=== PATIENT | male | born 1955 | race Caucasian/White ===

== ENCOUNTER → 2019-10-14 | Outpatient (CLI) | payer OTHER | LOC: COL.RAD 09:20 | DX: Z01.812 Encounter for preprocedural laboratory examination (principal); C61 Malignant neoplasm of prostate; M51.36 Other intervertebral disc degeneration, lumbar region | CPT/HCPCS: A9503; Q9967 ==

== ENCOUNTER 2019-12-09 15:10 | Inpatient (IN) | payer OTHER ==
[~2019-12-09] VITALS: Ht 182.9 cm; Wt 92.5 kg
[2019-12-22] VITALS (14 sets, daily range): BP systolic 84–123; BP diastolic 56–82; PULSE 75–104; TEMP 97.5–98
[2019-12-22] MEDS ORDERED: ZESTRIL40 MG PO (07:50)
[2019-12-22] MEDS ORDERED: HCTZ 25MG TAB25 MG PO (07:51)
[2019-12-22] MEDS ORDERED: PHARMASSURE ZIN50 MG PO (07:52)
[2019-12-22] MEDS ORDERED: VITAMIN B COMPL1 SGL PO (07:53)
[2019-12-22] MEDS ORDERED: NATURAL VITAM1000 MG PO (07:54)
[2019-12-22] MEDS ORDERED: VITAMIN D 1001000 IU PO (07:55)
[2019-12-22] MEDS ORDERED: DUO-KAPS1 CAP PO (07:56)
[2019-12-22] MEDS ORDERED: NIACIN 100100 MG/TAB PO (07:56)
[2019-12-22] MEDS ORDERED: OMEGA-3 1000 MG1 CAP PO (07:56)
[2019-12-22] MEDS ORDERED: IRON18 MG1 PO (07:56)
[2019-12-22] MEDS ORDERED: VITAMIN A10k PO (07:57)
[2019-12-22] MEDS ORDERED: MAGNESIUM ELEME30 MG PO (07:57)
[2019-12-22] MEDS ORDERED: CINNAMON500 MG PO (07:58)
--- NOTE | 2019-12-22 12:00 | NUR ---
PATIENT IS ORIENTED BUT VERY DROWSY POST OP. VSS CURRENTLY STABLE. PACU REPORTED HYPOTENTION DURING CASE. IV FLUIDS INFUSING VIA PUMP INTO LEFT HAND. PORTER TO DD WITH SMALL AMOUNTS OF CLEAR YELLOW URINE NOTED IN TUBE. MIDLINE DRESSING IS CD&I WITH GAUZE & METAPOR TAPE. ABDOMINAL GISELLA DRIAN TO LIS WITH SCANT AMOUNTS OF BLOODY DRAINAGE NOTED. HEAD TO TOE WNL. FAMILY AT BEDSIDE.
--- NOTE | 2019-12-22 12:40 | NUR ---
PATIENT DISCHARGING HOME VIA AMBULATORY WITH HIS BROTHER. GAVE DISCHARGE INSTRUCTIONS AND FOLLOW UP APT. ANSWERED ALL QUESTIONS/CONCERNS. IV DC'D. PATIENT DISCHARGED.
--- NOTE | 2019-12-22 12:45 | NUR ---
PATIENT HYPOTENSIVE. INCREASED IV FLUIDS. HOB LOWERED. PATIENT ORIENTED AND TALKING. EPIDURAL TURNED OFF. PHYSICIAN NOTIFIED.
--- NOTE | 2019-12-22 12:50 | NUR ---
ANESTHESIA NOTIFIED ABOUT EPIDURAL OFF. IV FLUID BOLUS OF 500 INFUSING. PATIENT STABLE. ASYMPTOMATIC AT THIS TIME.
--- NOTE | 2019-12-22 14:00 | NUR ---
PATIENT B/P NOW IN THE 90'S SYSTOLIC AFTER BOLUS AND EPIDURAL TURNED OFF. PATIENT STILL DENIES PAIN. EPIDURAL STILL OFF.
[2019-12-22 14:15] LABS: HEMATOCRIT 38.6 % (42.0-52.0)
--- NOTE | 2019-12-22 16:30 | NUR ---
PATIENT REPORTS HIS IS STARTING TO HAVE SOME DISCOMFORT. ANESTHESIA AT BEDSIDE TO TURN EPIDURAL BACK ON AT A LOWER DOSE.
--- NOTE | 2019-12-22 17:25 | NUR ---
AT BEDSIDE. PATIENT TOLERATING EPIDURAL AT 3CC/HR. WILL MONITOR.
--- NOTE | 2019-12-22 20:48 | NUR ---
Pt states he feels well, no pain, not symptommatic. BP still soft/ 90s over 60s. Continuing to monitor. Pt alert and oriented. Other vss. Pt has 1 midline incision covered with gauze and metapor tape, cd&i. Pt has sukhwinder drain to left side of abodmen which is on int suction, very minimal bloody drainage. Has spinal with pain meds running at 3cc/hr. Has bell catheter to dependent drainage. 18g in L hand with fluids running. Pt denies needs at this time. Call light within reach, will continue to monitor patient and pressures closely
--- NOTE | 2019-12-22 21:28 | NUR ---
Pt bp dropped to 86/51, he is asymptommatic. Bolusing fluids now and shut spinal off per Dr. Altamirano. Will switch to oral pain medicine. [place] 5-325 q6. Pt is ok with this. Will continue to monitor pain and pressures
--- NOTE | 2019-12-22 22:27 | NUR ---
pt bp is rising, still asymmptomatic. bolus given and fluids running at 150. pt states he feels good, denies chest pain, sob. alert and oriented x4. will continue to monitor
--- NOTE | 2019-12-22 23:50 | NUR ---
Pt bp dropped to 88/56, pt is sleeping. Does not appear to be in pain. Fluids running at 150/hr. Will continue to monitor pressures
[2019-12-23] VITALS (7 sets, daily range): BP systolic 89–139; BP diastolic 58–87; PULSE 75–94; TEMP 97.6–98.6
--- NOTE | 2019-12-23 03:38 | NUR ---
Pt sleeping peacefully in bed. Pressures are coming up. No signs of distress. Call light within reach, will continue to monitor
[2019-12-23 07:35] LABS: CALCIUM 7.7 mg/dL (8.4-10.2); CREATININE, serum 0.89 (0.66-1.25); POTASSIUM 3.9 mmol/L (3.4-5.0)
--- NOTE | 2019-12-23 09:30 | NUR ---
AT BEDSIDE. SEE ORDERS.
--- NOTE | 2019-12-23 12:00 | NUR ---
CUT & BAG GISELLA PER ORDERS. RE-ENFORCED ABDOMINAL DRESSING, APPLIED 4X4'S & MEDIPOR. PATIENT TOLERATING DIET WELL. IV TO INT. ASSISTED PATIENT TO BATHROOM TO TRY AND HAVE A BM. PATIENT INSTRUCTED TO NOT STRAIN.
--- NOTE | 2019-12-23 13:48 | NUR ---
Submarine Diver met with patient and patient's Carlos Manuel (ph#[phone]) to discuss discharge planning. Patient lives with his outside of [place], [place]. Patient sees BRAULIO Ryan at the [facility] office. Patient obtains needed prescriptions from [facility] in [place] with no difficulties. Patient does not use any DME and is independent with [facility]. Patient does not have Advance Directives and is confident his and children will make decisions in his best interest if needed. Patient plans to return home upon discharge with no additional concerns.
--- NOTE | 2019-12-23 18:25 | NUR ---
PATIENT AMBULATING IN HALLS GAIT. TOLERATING ACTIVITY WELL.
--- NOTE | 2019-12-23 21:00 | NUR ---
Report received. 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 Assessment complete. A&Ox3. VS stable. Denies pain/nausea/shortness of breath. Dressing to midline abdomen totally saturated with serosanguineous drainage. Changed at this time using 4x4s/abd/cloth tape. Ирина drain to DD-bag leaking as well-changed using ileostomy pouch- as previous U bag continued to leak. Tolerating PO. +Flatus. INT to left hand flushes without difficulty. Up to ambulate in hallways. States he feels much better than he thought he would. Denies questions/concerns. Encouraged to call for needs. Call light in reach. Will monitor.
[2019-12-24] VITALS: BP 130/70; PULSE 88; TEMP 98
[2019-12-24 04:58] VITALS: BP 119/74; PULSE 92; TEMP 97.6
[2019-12-24 08:02] VITALS: BP 142/90; PULSE 96; TEMP 97.5
[2019-12-24 11:53] VITALS: BP 132/85; PULSE 94; TEMP 97.8
--- NOTE | 2019-12-24 14:45 | NUR ---
Minimal complaints of incisional pain today. Ирина culp. Leg bag teaching done. Verbalized understanding. Ambulated in halls independently. Discharge instructions given. Dismissed to home per w/c with spouse.
== END 2019-12-24 14:45 | disposition home or self-care (01) | DRG 708 ==
LOC: INPTSU 12-22 06:36 → SURG 12-22 06:36
PROVIDERS: ADMIT Urology
PROC: 0VT04ZZ Resection of Prostate, Percutaneous Endoscopic Approach (ICD-10-PCS; principal; 2019-12-22 08:30)
PROC: 0VT34ZZ Resection of Bilateral Seminal Vesicles, Percutaneous Endoscopic Approach (ICD-10-PCS; 2019-12-22 08:30)
PROC: 07BC4ZZ Excision of Pelvis Lymphatic, Percutaneous Endoscopic Approach (ICD-10-PCS; 2019-12-22 08:30)
DX: C61 Malignant neoplasm of prostate (principal); M10.9 Gout, unspecified; I10 Essential (primary) hypertension; E78.2 Mixed hyperlipidemia; F17.210 Nicotine dependence, cigarettes, uncomplicated
CPT/HCPCS: A9284; J0690; J2250; J2370; J2704; J2795; J3010; J7120